=== PATIENT | female | born 1945 | race Caucasian/White ===

== ENCOUNTER 2020-05-21 10:08 | Emergency (ER) | payer MEDICARE, BC ==
--- NOTE | 2020-05-21 11:04 | EDM.PDOC ---
ED HPI GENERAL MEDICAL PROBLEM - General Chief Complaint: Bite:Animal, Insect Stated Complaint: bee string on hand swollen Time Seen by Provider: 05/21/20 10:50 Source of Information: Reports: Patient History Limitations: Reports: No Limitations - History of Present Illness INITIAL COMMENTS - FREE TEXT/NARRATIVE: 74 yo female was stung on the L hand last night. Has swelling of that hand still today so came to the ER. No self tx. No other sx's. No hx of allergy. 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: - Past Surgical History HEENT Surgical History: Reports: Tonsillectomy Social & Family History - Tobacco Use Smoking Status *Q: Never Smoker - Caffeine Use Caffeine Use: Reports: None - Recreational Drug Use Recreational Drug Use: No ED ROS GENERAL - Review of Systems Review Of Systems: See Below Constitutional: Reports: No Symptoms HEENT: Reports: No Symptoms Respiratory: Reports: No Symptoms Cardiovascular: Reports: No Symptoms Skin: Reports: Erythema (minimal to L hand), Wound (bee sting L hand) Neurological: Reports: No Symptoms ED EXAM, ANIMAL BITE - Physical Exam Exam: See Below Exam Limited By: No Limitations General Appearance: Alert, WD/WN, No Apparent Distress Eye Exam: Bilateral Eye: Normal Inspection Ears: Hearing Grossly Normal Nose: Normal Inspection, No Blood Throat/Mouth: Normal Inspection, Normal Lips, Normal Oropharynx, Normal Voice, No Airway Compromise Head: Atraumatic, Normocephalic Neck: Normal Inspection Respiratory/Chest: No Respiratory Distress, Lungs Clear, Normal Breath Sounds, No Accessory Muscle Use Extremities: Normal Inspection Neurological: Alert, Oriented, CN II-XII Intact, Normal Cognition, No Motor/Sensory Deficits Psychiatric: Normal Affect, Normal Mood Skin Exam: Warm/Dry, Other (puffy, light pink in color to the L lateral hand. No hives.) Course - Vital Signs Last Recorded V/S: Last Vital Signs Temp 37.1 C 05/21/20 10:31 Pulse 77 05/21/20 10:31 Resp 16 05/21/20 10:31 BP 136/70 05/21/20 10:31 Pulse Ox 95 05/21/20 10:31 Departure - Departure Time of Disposition: 11:03 Disposition: Home, Self-Care 01 Condition: Good Clinical Impression: Bee sting Qualifiers: Encounter type: initial encounter Injury intent: accidental or unintentional Qualified Code(s): T63.441A - Toxic effect of venom of bees, accidental (unintentional), initial encounter - Discharge Information *PRESCRIPTION DRUG MONITORING PROGRAM REVIEWED*: No *COPY OF PRESCRIPTION DRUG MONITORING REPORT IN PATIENT KARLEE: No Referrals: PCP,None [Primary Care Provider] - Additional Instructions: Ice, elevation and diphenhydramine per package instructions. Recheck as needed. Sepsis Event Note (ED) - Evaluation Sepsis Screening Result: No Definite Risk - Focused Exam Vital Signs: Vital Signs Temp Pulse Resp BP Pulse Ox 05/21/20 10:31 37.1 C 77 16 136/70 95 05/21/20 10:28 37.1 C 77 16 136/70 95
== END 2020-05-21 11:15 | disposition home or self-care (01) ==
LOC: JP.ED 10:08
DX: T63.441A Toxic effect of venom of bees, accidental (unintentional), initial encounter (principal)
CPT/HCPCS: 99282

== ENCOUNTER 2020-05-22 02:04 | Emergency (ER) | payer MEDICARE, BC ==
--- NOTE | 2020-05-22 02:48 | EDM.PDOC ---
ED HPI GENERAL MEDICAL PROBLEM - General Chief Complaint: Bite:Animal, Insect Stated Complaint: SWOLLEN L ARM Time Seen by Provider: 05/22/20 02:35 Source of Information: Reports: Patient History Limitations: Reports: No Limitations - History of Present Illness INITIAL COMMENTS - FREE TEXT/NARRATIVE: 74-year-old female who has edema of her left hand after being stung by a wasp just over 24 hours ago. She was seen yesterday and reassured, she has been taking Benadryl and icing on the hand bites getting more swollen and it was scaring her so she came in for another opinion. No fevers or chills, no shortness of breath, no reaction elsewhere other than the left hand. 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: - Past Surgical History HEENT Surgical History: Reports: Tonsillectomy Social & Family History - Tobacco Use Smoking Status *Q: Never Smoker - Caffeine Use Caffeine Use: Reports: Coffee - Recreational Drug Use Recreational Drug Use: No ED ROS GENERAL - Review of Systems Review Of Systems: See Below Constitutional: Denies: Fever, Chills Respiratory: Denies: Shortness of Breath Cardiovascular: Denies: Chest Pain GI/Abdominal: Denies: Abdominal Pain, Nausea, Vomiting Skin: Reports: Other (Small petechiae have formed on the top of the hand, there is also small redness on the inner aspect of the left elbow) Neurological: Reports: No Symptoms ED EXAM, ANIMAL BITE - Physical Exam Exam: See Below Exam Limited By: No Limitations General Appearance: Alert, No Apparent Distress Respiratory/Chest: No Respiratory Distress, Lungs Clear Extremities: Other (The left hand does have tense edema through all of the fingers and the hand up to just past the wrist. It is not warm, bruised, or red but slightly blanched) Course - Vital Signs Last Recorded V/S: Last Vital Signs Temp 98.3 F 08/21/20 02:35 Pulse 65 05/22/20 02:35 Resp 15 05/22/20 02:35 BP 142/94 H 05/22/20 02:35 Pulse Ox 97 05/22/20 02:35 - Re-Assessments/Exams Free Text/Narrative Re-Assessment/Exam: 05/22/20 02:47 Explained to the patient this is a toxic reaction to the bee sting and not an allergy, not an infection, and this will resolve over the next few days. She was given a Medrol Dosepak to take as directed to decrease the swelling at a faster rate. She can return anytime if worsening or concerns. Departure - Departure Time of Disposition: 03:08 Disposition: Home, Self-Care 01 Clinical Impression: Local reaction to bee sting Qualifiers: Encounter type: initial encounter Injury intent: accidental or unintentional Qualified Code(s): T63.441A - Toxic effect of venom of bees, accidental (unintentional), initial encounter - Discharge Information Instructions: Bee, Wasp, or Hornet Sting, Adult Referrals: PCP,None [Primary Care Provider] - Forms: ED Department Discharge Care Plan Goals: Take Medrol Dosepak as directed until swelling has resolved. Ibuprofen and Benadryl may be helpful. Recheck in 2 to 3 days if not improving satisf actorily. Sepsis Event Note (ED) - Evaluation Sepsis Screening Result: No Definite Risk - Focused Exam Vital Signs: Vital Signs Temp Pulse Resp BP Pulse Ox 05/22/20 02:35 98.3 F 65 15 142/94 H 97 05/22/20 02:34 98.3 F 65 15 142/94 H 97
== END 2020-05-22 03:08 | disposition home or self-care (01) ==
LOC: JP.ED 02:04
DX: T63.441A Toxic effect of venom of bees, accidental (unintentional), initial encounter (principal)
CPT/HCPCS: 99282; 99283